=== PATIENT | female | born 1970 | race American Indian/Alaskan Native ===

== ENCOUNTER 2017-11-10 09:33 | Emergency (ER) | payer OTHER ==
[2017-11-10 09:57] VITALS: BP 150/48; PULSE 93; TEMP 98.9; BMI 26.5
[2017-11-10] MEDS ORDERED: KETOROLAC TROMETHAMINE 30 MG/1 ML VIAL IM ONE (11:53)
--- NOTE | 2017-11-10 12:10 | PDOC ---
History of Present Illness - General Chief Complaint: Injury Stated Complaint: FALL/ RT KNEE PAIN Time Seen by Provider: 11/10/17 11:02 History Source: Patient Exam Limitations: No Limitations - History of Present Illness Initial Comments: 11/10/17 12:03 This is a 47-year-old woman without past medical history who presents emergency Department with right knee and sacrum pain status post slip and fall down 5 with this last evening. Patient states she was walking downstairs when she missed a step and fell feet first onto her right side striking her knee and sacrum on the stairs. She denies striking her head. She denies loss of consciousness. Patient with full recollection immediately prior to, during and after events. She denies numbness or tingling of the genitals, rectum or lower extremities. She reports one episode of urinary incontinence immediately after the fall. has not had any episodes since. Past History - Past Medical History Allergies/Adverse Reactions: Allergies Allergy/AdvReac Type Severity Reaction Status Date / Time No Known Allergies Allergy Verified 11/10/17 09:53 Home Medications: Ambulatory Orders NK [No Known Home Medication] 11/10/17 COPD: No Other medical history: DENIES. - Suicide/Smoking/Psychosocial Hx Smoking Status: No Smoking History: Never smoked Have you smoked in the past 12 months: No Number of Cigarettes Smoked Daily: 0 Cigars Per Day: 0 Hx Alcohol Use: No Drug/Substance Use Hx: No Substance Use Type: None Trauma Specific PMHX - Complaint Specific PMHX Back Injury: No Neck Injury: No Review of Systems - Review of Systems Able to Perform ROS?: Yes Is the patient limited Bel[place]ian proficient: No Constitutional: No: Symptoms Reported HEENTM: No: Symptoms Reported Respiratory: No: Symptoms reported Cardiac (ROS): No: Symptoms Reported ABD/GI: No: Symptoms Reported : No: Symptoms Reported Musculoskeletal: Yes: See HPI Integumentary: No: Symptoms Reported Neurological: No: Symptoms reported Endocrine: No: Symptoms Reported Hematologic/Lymphatic: No: Symptoms Reported *Physical Exam - Vital Signs Last Vital Signs Temp Pulse Resp BP Pulse Ox 98.9 F 93 H 18 150/48 97 11/10/17 09:54 11/10/17 09:54 11/10/17 09:54 11/10/17 09:54 11/10/17 09:54 - Physical Exam General Appearance: Yes: Appropriately Dressed. No: Apparent Distress HEENT: positive: TMs Normal Neck: positive: Trachea midline, Supple Respiratory/Chest: positive: Lungs Clear, Normal Breath Sounds. negative: Respiratory Distress, Accessory Muscle Use Musculoskeletal: positive: Other (Tenderness to palpation to left side of sacrum.). negative: CVA Tenderness, Vertebral Tenderness Extremity: positive: Swelling (Right infrapatellar). negative: Normal Range of Motion (Cannot flex right knee beyond 45) Integumentary: positive: Normal Color Neurologic: positive: dietary cook II-XII NML intact, Fully Oriented, Alert, Normal Mood/ Affect, Normal Response ED Treatment Course - RADIOLOGY Radiology Studies Ordered: Category Date Time Status KNEE 3 POS-RIGHT [RAD] Stat Radiology 11/10/17 11:53 Ordered SPINE-LUMBAR SACRAL [RAD] Stat Radiology 11/10/17 12:01 Ordered Medical Decision Making - Medical Decision Making 11/10/17 12:08 A/P: 47-year-old woman without past medical history with right knee and's sacral pain status post fall down 5 wooden steps Denies head trauma. Full sensation noted to rectum and genitals. Full sensation noted to medial and lateral thighs bilaterally. Tenderness to palpation of sacrum to the left aspect of sacral. Infrapatellar swelling noted to the right knee. Unable to flex knee beyond 45. DDx: Sacral fracture versus muscle strain, fracture of the right knee versus soft tissue/ligamentous injury X-rays of sacrum and right knee, Toradol, UPT, reassess 11/10/17 14:08 X-rays read by me: Right knee without dislocation, subluxation or fracture noted. No fracture noted in sacral x-ray. I'll discharge the patient home with follow-up with orthopedics *DC/Admit/Observation/Transfer Diagnosis at time of Disposition: Sacral pain Knee pain, right Qualifiers: Chronicity: acute Qualified Code(s): M25.561 - Pain in right knee - Discharge Dispostion Disposition: HOME Condition at time of disposition: Stable Admit: No - Referrals Referrals: Tae Bradford MD [Primary Care Provider] - Juan Manuel Cordero MD [Staff Physician] - - Patient Instructions Printed Discharge Instructions: DI for Knee Pain Additional Instructions: Take Tylenol or Motrin as prescribed for pain. Use knee immobilizer while awake. Apply ice to her knee for 20 minutes and removed for 20 minutes before reapplying. Keep leg elevated at all times. Use padding under your backside for comfort while sitting down. You've been given a recommendation to see Dr. Cordero was an orthopedist. Call his office today to schedule an appointment for evaluation within the next week. Return to emergency department for worsening pain, worsening swelling, inability to walk, numbness or tingling to your toes or any other concerns. Thank you very much for choosing us to provide your emergent healthcare needs. - Post Discharge Activity Forms/Work/School Notes: Back to Work
[2017-11-10] MEDS ORDERED: KETOROLAC TROMETHAMINE 30 MG/1 ML VIAL ONE (12:20)
== END 2017-11-10 14:17 | disposition home or self-care (01) ==
LOC: JERFT 09:33
PROC: 3E0233Z Introduction of Anti-inflammatory into Muscle, Percutaneous Approach (ICD-10-PCS; principal; 2017-11-10)
DX: M25.561 Pain in right knee (principal); M53.3 Sacrococcygeal disorders, not elsewhere classified; W10.9XXA Fall (on) (from) unspecified stairs and steps, initial encounter; Y93.89 Activity, other specified; Y92.9 Unspecified place or not applicable
CPT/HCPCS: 72100-TC-FY; 73562-TC-RT-FY; 84703; 99282-25

== ENCOUNTER 2018-01-02 13:02 | Emergency (ER) | payer OTHER ==
[2018-01-02 13:20] VITALS: BP 148/80; PULSE 75; TEMP 98; BMI 26.2
--- NOTE | 2018-01-02 13:58 | PDOC ---
History of Present Illness - General Chief Complaint: Pain, Acute Stated Complaint: SWOLLEN RT HAND Time Seen by Provider: 01/02/18 13:33 History Source: Patient Exam Limitations: No Limitations - History of Present Illness Initial Comments: 01/02/18 13:56 CHIEF COMPLAINT: Right wrist injury HISTORY OF PRESENT ILLNESS: Patient is a 47-year-old female with recent injury to right knee she was walking yesterday and her right knee buckled fell forward and while bracing her fall injured her right wrist now with pain and swelling with lateral right wrist bruising. No deformity. Good range of motion to the fingers. No other injuries noted. PMH: Right knee injury MEDS: None ALLERGIES: None REVIEW OF SYSTEMS: GENERAL/CONSTITUTIONAL: Awake alert and oriented HEAD, EYES, EARS, NOSE AND THROAT: No change in vision. No facial edema, no bruising. NO active bleeding. Nares intact. RESPIRATORY: No cough, wheezing, or hemoptysis. CARDIAC: Denies chest pain, no shortness of breathe. MUSCULOSKELETAL: No spinal point tenderness, Good ROM to all four extremeties. NO CVA tenderness. [ no] lateral neck pain. GI/: Denies abdominal pain, no nausea or vomiting, no bloody stool, no Hematuria. SKIN : No erythema, there is bruising noted to right lateral wrist , no abrasion or lacerations. NEUROLOGIC: No loss of consciousness, no numbness or tingling. PHYSICAL EXAM: GENERAL: Awake and alert and oriented x3. EYES: The pupils are equal, round, and reactive to light, with clear, conjunctiva. Good extraocular movement. No nystagmus NOSE: No nasal trauma . Midface stable MOUTH: Teeth intact. EARS: The ear canals and tympanic membranes are normal without trauma. No drainage. NECK: No Lower cervical C-spine tenderness, no pain with chin to chest. CHEST: The lungs are clear without crackles, or wheezes. No subcutaneous emphysema. No crepitus. HEART: Heart is regular rhythm, with normal S1 and S2, no murmurs. ABDOMEN: The abdomen is soft and nontender with normal bowel sounds. There is no guarding or rebound. MUSCULOSKELETAL: No spinal point tenderness. Pelvis stable. Right wrist swelling with bruising to right lateral wrist SKIN: Edema, erythema and bruising to right lateral wrist no other abrasions or lacerations Past History - Past Medical History Allergies/Adverse Reactions: Allergies Allergy/AdvReac Type Severity Reaction Status Date / Time No Known Allergies Allergy Verified 11/10/17 09:53 Home Medications: Ambulatory Orders Oxycodone HCl/Acetaminophen [Percocet 5-325 mg Tablet] 1 tab PO Q6H #12 tablet MDD 4 01/02/18 COPD: No - Suicide/Smoking/Psychosocial Hx Smoking Status: No Smoking History: Never smoked Have you smoked in the past 12 months: No Number of Cigarettes Smoked Daily: 0 Cigars Per Day: 0 Information on smoking cessation initiated: No Hx Alcohol Use: No Drug/Substance Use Hx: No Substance Use Type: None *Physical Exam - Vital Signs Last Vital Signs Temp Pulse Resp BP Pulse Ox 98 F 75 20 148/80 98 01/02/18 13:13 01/02/18 13:13 01/02/18 13:13 01/02/18 13:13 01/02/18 13:13 Procedures - Splinting Splint Location: Right: Wrist, Forearm Pre-Proc Neuro Vasc Exam: normal Hand-Made Type: fiberglass Splint Type: Yes: Short Arm Post-Proc Neuro Vasc Exam: normal Conrad Bandage: 3" Sling: Yes Complications: No Post splint xray: No ED Treatment Course - RADIOLOGY Radiology Studies Ordered: Category Date Time Status FOREARM- RIGHT [RAD] Stat Radiology 01/02/18 13:38 Ordered WRIST W/HAND-RIGHT* [RAD] Stat Radiology 01/02/18 13:38 Ordered Medical Decision Making - Medical Decision Making 01/02/18 13:58 A/P: Patient with right wrist injury. Sent to x-ray of forearm and wrist 01/02/18 14:48 X-ray with a subtle distal radius impaction fracture arm splinted with Ortho- Glass, see procedure note Follow-up with Dr. Patel tomorrow, Missyocet for pain. Motrin for minor pain , Post-splinting, patient with good radial pulse, less than 2 second cap refill. 01/02/18 14:59 *DC/Admit/Observation/Transfer Diagnosis at time of Disposition: Distal radial fracture Qualifiers: Encounter type: initial encounter Fracture type: closed Fracture morphology: other fracture Laterality: right Qualified Code(s): S52.591A - Other fractures of lower end of right radius, initial encounter for closed fracture - Discharge Dispostion Disposition: HOME Condition at time of disposition: Stable Admit: No - Prescriptions Prescriptions: Oxycodone HCl/Acetaminophen [Percocet 5-325 mg Tablet] 1 tab PO Q6H #12 tablet MDD 4 - Referrals Referrals: Tae Bradford MD [Primary Care Provider] - - Patient Instructions Printed Discharge Instructions: How to Use a Sling Additional Instructions: 1. Please return to the emergency department with any redness, swelling, increased pain, or any other concerns. 2. Keep splint on. 3. Please follow up in the office of Dr. Patel tomorrow a.m. 4. No weightbearing 5. Ice and elevate when at rest. 6. Motrin for pain Follow-up with occupational medicine for clearance to return to work - Post Discharge Activity Forms/Work/School Notes: Back to Work
== END 2018-01-02 15:01 | disposition home or self-care (01) ==
LOC: JER 13:02 → JERFT 13:02
PROC: 2W3CX1Z Immobilization of Right Lower Arm using Splint (ICD-10-PCS; principal; 2018-01-02)
DX: S52.591A Other fractures of lower end of right radius, initial encounter for closed fracture (principal); W18.39XA Other fall on same level, initial encounter; Y93.89 Activity, other specified; Y92.89 Other specified places as the place of occurrence of the external cause; Y99.8 Other external cause status
CPT/HCPCS: 73090-TC-RT-FY; 73110-TC-RT-FY; 73130-TC-RT-FY; 99281-25

== ENCOUNTER 2020-10-25 16:15 | Emergency (ER) | payer OTHER ==
[2020-10-25 16:20] VITALS: BMI 26.5
[2020-10-25] MEDS ORDERED: ONDANSETRON 4 MG/2 ML VIAL IVPUSH ONE (16:46)
[2020-10-25] MEDS ORDERED: SODIUM CHLORIDE 1,000 ML IV STA (16:46)
[2020-10-25] MEDS ORDERED: MECLIZINE HCL 25 MG TABLET (FP) PO ONE (16:57)
[2020-10-25] MEDS ORDERED: ONDANSETRON 4 MG/2 ML VIAL ONE (17:12)
[2020-10-25] MEDS ORDERED: MECLIZINE HCL 25 MG TABLET (FP) ONE (17:12)
[2020-10-25 19:15] LABS: BASO % 0.1 % (0-2.0); EOS % 0.1 % (0-4.5); HEMOGLOBIN 13.5 GM/dL (10.7-15.3); LYMPH % 10.6 % (8-40); MEAN CELL VOLUME 84.8 fl (80-96); MEAN PLT VOLUME 9.9 fl (7.5-11.1); NEUT % 86.2 % (42.8-82.8); PLATELET COUNT 179 K/MM3 (134-434); RBC 4.83 M/mm3 (3.60-5.2); RDW 14.2 % (11.6-15.6); WHITE BLOOD COUNT 7.6 K/mm3 (4.0-10.0)
[2020-10-25 19:44] LABS: EPI CELLS 13 /uL (0-25.1); HYALINE CASTS 0 /uL (0-3.1); PH,URINE 6.5 (5.0-8.0); URINE APPEARANCE CLEAR; URINE BACTERIA 537 /uL (0-1359); URINE BILIRUBIN NEGATIVE (NEGATIVE); URINE COLOR YELLOW; URINE GLUCOSE (UA) NEGATIVE (NEGATIVE); URINE KETONE NEGATIVE (NEGATIVE); URINE LEUK ESTERASE TRACE (NEGATIVE); URINE NITRITE NEGATIVE (NEGATIVE); URINE PROTEIN NEGATIVE (NEGATIVE); URINE RBC 7 /uL (0-23.9); URINE UROBILINOGEN 0.2 mg/dL (0.2-1.0); URINE WBC 24 /uL (0-25.8)
[2020-10-25 19:51] LABS: CHLORIDE 106 mmol/L (98-107); POTASSIUM 4.6 mmol/L (3.5-5.1); SODIUM 140 mmol/L (136-145)
[2020-10-25 19:53] LABS: BLOOD UREA NITROGEN 13.9 mg/dL (7-18); CALCIUM 9.7 mg/dL (8.5-10.1)
[2020-10-25 19:54] LABS: ALBUMIN 4.4 g/dl (3.4-5.0); ANION GAP 8 MMOL/L (8-16); CO2 25 mmol/L (21-32); GLUCOSE,RANDOM 111 mg/dL (74-106)
[2020-10-25 19:55] LABS: LIPASE 117 U/L (73-393)
[2020-10-25 19:57] LABS: CREATININE 0.7 mg/dL (0.55-1.3); SGOT/AST 23 U/L (15-37); SGPT/ALT 43 U/L (13-61)
[2020-10-25 19:59] LABS: BILIRUBIN,TOTAL 0.5 mg/dL (0.2-1)
[2020-10-25 20:00] VITALS: BP 142/78; PULSE 89; TEMP 98.2
[2020-10-25 20:00] LABS: ALK PHOS 70 U/L (45-117)
== END 2020-10-25 20:46 | disposition home or self-care (01) ==
LOC: JER 16:15
PROC: 3E0337Z Introduction of Electrolytic and Water Balance Substance into Peripheral Vein, Percutaneous Approach (ICD-10-PCS; principal; 2020-10-25)
PROC: 3E033GC Introduction of Other Therapeutic Substance into Peripheral Vein, Percutaneous Approach (ICD-10-PCS; principal; 2020-10-25)
DX: R42 Dizziness and giddiness (principal)
CPT/HCPCS: 36415; 70450-TC; 71045-TC-FY; 80053; 81003; 82550; 83690; 83735; 84484; 85025; 87077; 87086; 93005; 93010; 99285-25; C9803; U0003

== ENCOUNTER 2021-03-10 14:05 | Emergency (ER) | payer OTHER ==
[2021-03-10 14:23] VITALS: BP 131/75; PULSE 84; TEMP 98; BMI 25.4
[2021-03-10] MEDS ORDERED: IBUPROFEN 600 MG TABLET (FP) PO ONE ×2 (14:35→14:44)
== END 2021-03-10 15:25 | disposition home or self-care (01) ==
LOC: JERFT 14:05
DX: M77.12 Lateral epicondylitis, left elbow (principal)
CPT/HCPCS: 73070-TC-LT-FY; 99283-25

== ENCOUNTER 2022-10-13 11:58 | Emergency (ER) | payer OTHER ==
[2022-10-13 12:06] VITALS: BP 147/94; PULSE 105; RESP 20; TEMP 98; BMI 29.2
[2022-10-13] MEDS ORDERED: IBUPROFEN 400 MG TABLET (FP) PO ONE (13:02)
[2022-10-13] MEDS ORDERED: ACETAMINOPHEN 500 MG TABLET (FP) PO ONE (13:02)
[2022-10-13] MEDS ORDERED: IBUPROFEN 600 MG TABLET (FP) PO ONE (13:09)
[2022-10-13] MEDS ORDERED: ACETAMINOPHEN 500 MG TABLET (FP) ONE (13:10)
== END 2022-10-13 13:44 | disposition home or self-care (01) ==
LOC: JERFT 11:58
DX: M25.511 Pain in right shoulder (principal); M79.604 Pain in right leg; W07.XXXA Fall from chair, initial encounter
CPT/HCPCS: 73552-TC-RT-FY; 99283-25

== ENCOUNTER 2023-11-09 04:41 | Day surgery (SDC) | payer OTHER ==
[2023-10-22 15:09] VITALS: BMI 26.9
[2023-11-09 14:36] VITALS: RESP 20
[2023-11-09 15:29] VITALS: BP 138/70; PULSE 75; TEMP 98
== END 2023-11-09 15:25 | disposition home or self-care (01) ==
LOC: JRADIR 04:41
PROVIDERS: ATTEND Internal Medicine
PROC: 0F923ZX Drainage of Left Lobe Liver, Percutaneous Approach, Diagnostic (ICD-10-PCS; principal; 2023-11-09)
DX: K76.89 Other specified diseases of liver (principal)
CPT/HCPCS: 49405; 87070; 87075; 87102; 87116; 87205; 87206; 87210; 88108; 88305-TC

== ENCOUNTER 2023-12-07 05:13 | Day surgery (SDC) | payer OTHER ==
[2023-11-30 11:49] VITALS: BMI 26.9
[2023-12-07] MEDS ORDERED: LIDOCAINE HCL 1%, 10 MG/ML (20ML VIAL) ONE (10:41)
[2023-12-07] MEDS: ceFAZolin SODIUM 1 GM VIAL IVPB ONE ×2 (11:12→11:42)
[2023-12-07] MEDS ORDERED: PROMETHAZINE HCL 25 MG/1 ML VIAL IVPB PRN (11:19)
[2023-12-07] MEDS ORDERED: ONDANSETRON 4 MG/2 ML VIAL IVPUSH PRN (11:19)
[2023-12-07] MEDS ORDERED: PROPOFOL 20 ML ONE (11:22)
[2023-12-07] MEDS ORDERED: FENTANYL CITRATE/PF 50 MCG/ML VIAL ONE ×2 (11:22→13:43)
[2023-12-07] MEDS ORDERED: MIDAZOLAM HCL 2 MG/2 ML SINGLE DOSE VIAL ONE (11:22)
[2023-12-07] MEDS ORDERED: LIDOCAINE HCL/PF 2% SDV 5ML VIAL ONE (11:24)
[2023-12-07] MEDS ORDERED: LACTATED RINGERS SOLUTION 1,000 ML IV SCH (11:30)
[2023-12-07] MEDS ORDERED: ceFAZolin SODIUM 1 GM VIAL ONE (11:35)
[2023-12-07] MEDS ORDERED: SODIUM CHLORIDE 0.9% P/F 10 ML VIAL IJ ONE (11:35)
[2023-12-07] MEDS ORDERED: DEXAMETHASONE SOD PHOSPHATE 4 MG/1 ML VIAL ONE (11:47)
[2023-12-07] MEDS ORDERED: ONDANSETRON 4 MG/2 ML VIAL ONE (11:47)
[2023-12-07] MEDS: LIDOCAINE HCL 1%, 10 MG/ML (20ML VIAL) NR ONE ×2 (11:59)
[2023-12-07] MEDS ORDERED: ACETAMINOPHEN INJECTION 100 ML IVPB ONE (12:05)
[2023-12-07] MEDS: BACITRACIN ZINC 15 GM TUBE TOPICAL OINTMENT TP ONE (12:15)
[2023-12-07] MEDS ORDERED: BACITRACIN ZINC 15 GM TUBE TOPICAL OINTMENT ONE (12:16)
[2023-12-07] MEDS: oxyCODONE HCL 5 MG TABLET PO PRN (15:45)
[2023-12-07] MEDS ORDERED: oxyCODONE HCL 5 MG TABLET ONE (15:47)
[2023-12-07 15:56] VITALS: RESP 20; TEMP 97.5
[2023-12-07 15:59] VITALS: BP 120/57; PULSE 65
== END 2023-12-07 16:20 | disposition home or self-care (01) ==
LOC: JASU-SURG 05:13
PROVIDERS: ATTEND Surgery
PROC: 0HBU0ZZ Excision of Left Breast, Open Approach (ICD-10-PCS; principal; 2023-12-07 12:00)
DX: D05.12 Intraductal carcinoma in situ of left breast (principal)
CPT/HCPCS: 81025; 88307-TC; 88342-TC; 94760; J0131

== ENCOUNTER 2024-02-01 03:45 | Day surgery (SDC) | payer OTHER ==
[2024-01-28 17:38] VITALS: BMI 26.1
[2024-02-01] MEDS ORDERED: LIDOCAINE HCL 1%, 10 MG/ML (20ML VIAL) ONE (07:37)
[2024-02-01] MEDS ORDERED: ISOSULFAN BLUE 50 MG/5 ML VIAL SQ ONE (07:38)
[2024-02-01] MEDS ORDERED: LIDOCAINE HCL/PF 2% SDV 5ML VIAL ONE (08:40)
[2024-02-01] MEDS ORDERED: PROPOFOL 20 ML ONE (08:40)
[2024-02-01] MEDS ORDERED: MIDAZOLAM HCL 2 MG/2 ML SINGLE DOSE VIAL ONE (08:40)
[2024-02-01] MEDS ORDERED: FENTANYL CITRATE/PF 50 MCG/ML VIAL ONE ×3 (08:40→11:35)
[2024-02-01] MEDS ORDERED: ceFAZolin SODIUM 1 GM VIAL ONE (09:32)
[2024-02-01] MEDS ORDERED: DEXAMETHASONE SOD PHOSPHATE 4 MG/1 ML VIAL ONE (09:32)
[2024-02-01] MEDS: ceFAZolin SODIUM 1 GM VIAL IVPB ONE (09:33)
[2024-02-01] MEDS ORDERED: ONDANSETRON 4 MG/2 ML VIAL ONE (09:37)
[2024-02-01] MEDS: LIDOCAINE HCL 1%, 10 MG/ML (50 mL VIAL) INF ONE (09:47)
[2024-02-01] MEDS ORDERED: KETOROLAC TROMETHAMINE 30 MG/1 ML VIAL ONE (10:00)
[2024-02-01] MEDS ORDERED: PROMETHAZINE HCL 25 MG/1 ML VIAL IVPB PRN (10:51)
[2024-02-01] MEDS ORDERED: oxyCODONE HCL 5 MG TABLET PO PRN ×2 (10:51)
[2024-02-01] MEDS ORDERED: ONDANSETRON 4 MG/2 ML VIAL IVPUSH PRN (10:51)
[2024-02-01] MEDS ORDERED: LACTATED RINGERS SOLUTION 1,000 ML IV SCH (11:00)
[2024-02-01] MEDS: ACETAMINOPHEN 1000 MG/100 ML BAG IVPB ONE (11:30)
[2024-02-01] MEDS ORDERED: ACETAMINOPHEN INJECTION 100 ML IVPB ONE (11:31)
[2024-02-01 13:52] VITALS: BP 133/69; PULSE 71; RESP 18; TEMP 97.9
== END 2024-02-01 13:40 | disposition home or self-care (01) ==
LOC: JASU-SURG 03:45
PROVIDERS: ATTEND Surgery
PROC: 0HBU0ZZ Excision of Left Breast, Open Approach (ICD-10-PCS; principal; 2024-02-01 09:00)
PROC: 07B60ZX Excision of Left Axillary Lymphatic, Open Approach, Diagnostic (ICD-10-PCS; 2024-02-01 09:00)
DX: C50.912 Malignant neoplasm of unspecified site of left female breast (principal)
CPT/HCPCS: 78195-TC; 88307-TC; 88342-TC; 94760; A9541; J0131

== ENCOUNTER 2024-03-29 11:35 | Emergency (ER) | payer OTHER ==
[2024-03-29 12:12] VITALS: BP 138/83; PULSE 104; RESP 18; TEMP 98.6; BMI 25.4
[2024-03-29] MEDS ORDERED: morphine SULFATE 4 MG/ML VIAL ONE (12:56)
[2024-03-29] MEDS: SODIUM CHLORIDE 500 ML IV STA (13:10)
[2024-03-29] MEDS: morphine CARPU-JECT 4 MG/1 ML DISP.SYRIN IVPUSH ONE (13:11)
[2024-03-29 14:37] LABS: HEMATOCRIT 36.9 % (32.4-45.2); HEMOGLOBIN 12.4 GM/dL (10.7-15.3); MCH 28.4 pg (25.7-33.7); MCHC 33.7 g/dl (32.0-36.0); MEAN CELL VOLUME 84.2 fl (80-96); MEAN PLT VOLUME 8.2 fl (7.5-11.1); PLATELET COUNT 113 10^3/uL (134-434); RBC 4.39 M/mm3 (3.60-5.2); RDW 13.4 % (11.6-15.6); WHITE BLOOD COUNT 2.1 K/mm3 (4.0-10.0)
[2024-03-29 14:51] LABS: INR 1.01 (0.83-1.09); PROTHROMBIN TIME (PATIENT) 11.4 SEC (9.7-13.0)
[2024-03-29 15:48] LABS: POTASSIUM 4.8 mmol/L (3.5-5.1)
[2024-03-29 15:50] LABS: CALCIUM 9.1 mg/dL (8.5-10.1)
[2024-03-29 15:51] LABS: ALBUMIN 3.6 g/dl (3.4-5.0); BLOOD UREA NITROGEN 12.6 mg/dL (7-18)
[2024-03-29 15:54] LABS: CREATININE 0.6 mg/dL (0.55-1.3)
[2024-03-29 15:55] LABS: BILIRUBIN,TOTAL 0.6 mg/dL (0.2-1); TOT PROT 6.5 g/dl (6.4-8.2)
[2024-03-29 16:01] LABS: PLATELET ESTIMATE SLT DECREASE
[2024-03-29] MEDS ORDERED: LORATADINE 10 MG TABLET ONE (17:04)
[2024-03-29] MEDS: LORATADINE 10 MG TABLET PO ONE (17:10)
== END 2024-03-29 18:25 | disposition home or self-care (01) ==
LOC: JER 11:35
PROC: 3E033NZ Introduction of Analgesics, Hypnotics, Sedatives into Peripheral Vein, Percutaneous Approach (ICD-10-PCS; principal; 2024-03-29)
PROC: 3E0337Z Introduction of Electrolytic and Water Balance Substance into Peripheral Vein, Percutaneous Approach (ICD-10-PCS; 2024-03-29)
DX: M79.10 Myalgia, unspecified site (principal); M54.2 Cervicalgia; M54.9 Dorsalgia, unspecified; M79.604 Pain in right leg; M79.605 Pain in left leg; R07.89 Other chest pain
CPT/HCPCS: 36415; 71045-TC-FY; 80053; 83735; 84484; 85025; 85610; 88300-TC; 93005; 93010; 99285-25